=== PATIENT | female | born 1940 | race Caucasian/White ===

== ENCOUNTER → 2016-12-02 | Outpatient (CLI) | payer OTHER | LOC: CIMAGING 09:18 | DX: Z12.31 Encounter for screening mammogram for malignant neoplasm of breast (principal) | CPT/HCPCS: G0202 ==

== ENCOUNTER → 2017-12-02 | Outpatient (CLI) | payer OTHER | LOC: CIMAGING 09:56 | PROVIDERS: ATTEND Internal Medicine | DX: Z12.31 Encounter for screening mammogram for malignant neoplasm of breast (principal) ==

== ENCOUNTER → 2018-12-12 | Outpatient (CLI) | payer OTHER | LOC: CIMAGING 10:18 | PROVIDERS: ATTEND Internal Medicine | DX: Z12.31 Encounter for screening mammogram for malignant neoplasm of breast (principal) ==

== ENCOUNTER → 2019-03-26 | Outpatient (CLI) | payer OTHER | LOC: EMCIMAGING 09:29 ==